=== PATIENT | female | born 1960 | race Caucasian/White ===

== ENCOUNTER → 2017-10-12 14:30 | Outpatient (CLI) | payer OTHER, SELFPAY ==
[2017-10-12 14:59] LABS: Add Manual Diff / Slide Review NO; Basophils Percent Auto 0.5 % (0-2); Eosinophils Percent Auto 1.8 % (2-4); Hematocrit 39.2 % (36-46); Hemoglobin 13.6 g/dL (12.0-16.0); Lymphocytes Percent Auto 36.8 % (25-40); Mean Corpuscular HGB Conc 34.7 % (30-36); Mean Corpuscular Hemoglobin 32.9 PG (26-34); Mean Corpuscular Volume 94.7 fL (80-100); Monocytes Percent Auto 9.1 % (3-14); Neutrophils Absolute Auto 3100 /uL (3000-5900); Neutrophils Percent Auto 51.8 % (50-75); Platelet Count 213 X10^3/uL (150-400); Red Blood Cell Count 4.14 X10^6/uL (4.0-5.2); Red Cell Distribution Width 11.7 % (11.6-14.8); White Blood Cell Count 6.1 X10^3/uL (4.5-11.0)
[2017-10-12 15:28] LABS: Alanine Aminotransferase 30 IU/L (9-52); Albumin 4.5 g/dL (3.5-5.0); Albumin Globulin Ratio 1.6 (1.0-2.8); Alkaline Phosphatase 47 U/L (38-126); Aspartate Aminotransferase 31 IU/L (14-36); BUN Creatinine Ratio 31.7 (6-22); Bilirubin Total 0.8 mg/dL (0.2-1.3); Blood Urea Nitrogen 19 mg/dL (7-17); Calcium 9.6 mg/dL (8.4-10.2); Carbon Dioxide 35 mmol/L (22-32); Chloride 94 mmol/L (98-107); Cholesterol 174 mg/dL (140-199); Estimated Glomerular Filt Rate > 60.0 mL/min (>60); Globulin 2.8 g/dL (1.7-4.1); Glucose 81 mg/dL (70-100); HDL Cholesterol 76 mg/dL (40-60); HEMOLYSIS < 15 (0-50); LDL Cholesterol Calculated 83 mg/dL (<100); Sodium 139 mmol/L (137-145); Total Protein 7.3 g/dL (6.3-8.2); Triglycerides 75 mg/dL (35-150)
[2017-10-12 15:38] LABS: Potassium 2.6 mmol/L (3.4-5.1)
[2017-10-12 16:45] LABS: Thyroid Stimulating Hormone 0.04 uIU/mL (0.47-4.68)
== END ==
PROVIDERS: Family Provider Internal Medicine; PCP Internal Medicine; Visit Provider Internal Medicine
DX: I10 Essential (primary) hypertension (principal); N95.1 Menopausal and female climacteric states; R79.89 Other specified abnormal findings of blood chemistry
CPT/HCPCS: 36415; 80053; 80061; 84443; 85025; 86376

== ENCOUNTER → 2017-10-16 09:54 | Outpatient (CLI) | payer OTHER, SELFPAY ==
[2017-10-16 11:02] LABS: Alanine Aminotransferase 29 IU/L (9-52); Albumin 4.6 g/dL (3.5-5.0); Albumin Globulin Ratio 1.6 (1.0-2.8); Alkaline Phosphatase 47 U/L (38-126); Aspartate Aminotransferase 31 IU/L (14-36); BUN Creatinine Ratio 23.3 (6-22); Bilirubin Total 0.6 mg/dL (0.2-1.3); Blood Urea Nitrogen 14 mg/dL (7-17); Calcium 9.5 mg/dL (8.4-10.2); Carbon Dioxide 31 mmol/L (22-32); Chloride 101 mmol/L (98-107); Estimated Glomerular Filt Rate > 60.0 mL/min (>60); Globulin 2.9 g/dL (1.7-4.1); Glucose 89 mg/dL (70-100); HEMOLYSIS < 15 (0-50); Sodium 141 mmol/L (137-145); Total Protein 7.5 g/dL (6.3-8.2)
[2017-10-16 11:15] LABS: Free T3, Triiodothyronine Free 3.45 pg/mL (2.77-5.27); Free T4, Direct Thyroxine 0.91 ng/dL (0.78-2.19)
[2017-10-16 11:29] LABS: Thyroid Stimulating Hormone 0.98 uIU/mL (0.47-4.68)
== END ==
PROVIDERS: Family Provider Internal Medicine; PCP Internal Medicine; Visit Provider Internal Medicine
DX: I10 Essential (primary) hypertension (principal); R61 Generalized hyperhidrosis; R79.89 Other specified abnormal findings of blood chemistry
CPT/HCPCS: 36415; 80053; 80061; 84439; 84443; 84481; 85025; 86800

== ENCOUNTER 2018-10-16 18:17 | Emergency (ER) | payer BC, SELFPAY ==
--- NOTE | 2018-10-16 18:35 | ED.WOUNDLAC ---
HPI - Wound/Laceration General Chief Complaint: Wound/Laceration Stated Complaint: laceration to left wrist Time Seen by Provider: 10/16/18 18:33 Source: patient Mode of arrival: ambulatory Limitations: no limitations History of Present Illness HPI narrative: 58-year-old female here for evaluation of a laceration to her left forearm. Patient states that just prior to arrival she was opening oysters when the knife slipped and cut her arm. She had immediate bleeding. She did wash it out prior to arrival. She was up-to-date on tetanus. Related Data Previous Rx's Medication Instructions Recorded chlorthalidone 25 mg tablet 25 mg PO DAILY #30 tab 09/22/17 potassium chloride ER 20 mEq 20 meq PO BID #14 tab 10/12/17 tablet,extended release hydrochlorothiazide 12.5 mg tablet 12.5 mg PO DAILY #30 tab 11/09/17 cephalexin [Keflex] 500 mg PO QID 7 Days #28 cap 10/16/18 Allergies Allergy/AdvReac Type Severity Reaction Status Date / Time carbamazepine [From Tegretol] AdvReac Verified 10/16/18 18:39 Review of Systems Constitutional Denies fever(s) Cardiovascular Denies chest pain and Denies dyspnea Respiratory Denies dyspnea Musculoskeletal Denies tingling Comments: No left wrist or left elbow pain Integumentary/Breasts Comments: Cut to the left forearm Neurologic Denies tingling Hematologic/Lymphatic Denies easy bleeding and Denies easy bruising [facility] Medical History Hearing loss (Chronic) Ruptured tympanic membrane (Chronic) Tinnitus (Chronic) Vertigo (Chronic) Chicken pox (Resolved ~1965) Surgical History Anesthesia (Resolved) History of tympanostomy (Resolved) Family History (Updated 09/26/17 @ 22:18 by Janis Nichols) Mother Hypertension Stroke Sister Breast cancer Diabetes mellitus Heart disease Hyperlipidemia Hypertension Stroke Mental health problem Social History Smoking Status: Former smoker Family History (Updated 09/26/17 @ 22:18 by Janis Nichols) Mother Hypertension Stroke Sister Breast cancer Diabetes mellitus Heart disease Hyperlipidemia Hypertension Stroke Mental health problem Social History (Reviewed 08/25/19 @ 03:58 by DORIS Jenkins Smoking Status: Former smoker Exam Initial Vital Signs Initial Vital Signs: Vital Signs Temperature 98.3 F 10/16/18 18:39 Pulse Rate 93 H 10/16/18 18:39 Respiratory Rate 20 10/16/18 18:39 Blood Pressure 181/119 H 10/16/18 18:39 Pulse Oximetry 98 10/16/18 18:39 Const General: cooperative Resp Effort & Inspection: normal respiratory effort Cardio Rate: regular rate Pulses: radial pulses present on the left Skin Other: A 3 cm laceration to the radial aspect of the distal 3rd of the left forearm. Neuro General: alert, awake and oriented x3 Cognition: normal cognition Speech: speech normal Extrem Other: Full range of motion left elbow left wrist. Patient able to flex and extend the wrist both active and passive hand against resistance. Able to flex and extend the thumb at the MCP and IP joint both active and passive and against resistance. Patient able to pronate and supinate. Psych Appearance: grossly normal and well kempt Procedures Laceration Repair Laceration 1: Site: upper extremity Side (If applicable): left Size (cm): 3 Description: linear Depth: simple, single layer Local Anesthetic: lidocaine 1% Amount of anesthesia used (mL): 4 Pre-repair: wound explored, irrigated extensively and deep structures intact Skin layer closed with: nylon Size (cm): 4-0 Number of sutures: 5 Technique: simple, interrupted Course Orders Ordered: Discontinued Medications Lidocaine HCl (Xylocaine 1% (Pf)) 4 ml INJ NOW ONE Stop: 10/16/18 18:36 Last Admin: 10/16/18 18:53 Dose: 4 ml Lidocaine HCl (Xylocaine 1% (Pf)) 4 ml SUBCUT NOW ONE Stop: 10/16/18 19:14 Last Admin: 10/16/18 19:17 Dose: 4 ml Vital Signs - 8 hr 10/16/18 20:20 Pulse Rate 75 Respiratory Rate 17 Blood Pressure [Right Arm] 136/94 H Pulse Oximetry 100 MDM - Wound/Laceration MDM Narrative Medical decision making narrative: Patient had full range of motion of the joints and able to pronate and supinate. I have low suspicion for fracture and low suspicion for foreign body so we will hold on x-ray. She is up-to-date on her tetanus. The wound was irrigated prior to arrival. Due to the physical exam I feel that tendon injury is unlikely. Patient did have a strong radial pulse. Did have some bleeding on the very proximal aspect of the wound that did have the appearance of an arterial bleed. I do not think that this was the radial artery. Gelfoam was used with pressure to stop bleeding. The wound was then closed as described above. There was a small hematoma subcutaneous just proximal to the wound. After the wound was closed she was observed here in the emergency department for short period of time with pressure over the area and there was no expanding hematoma. She was then observed for short period of time without any pressure and again there was no expanding hematoma and no bleeding from the wound. The wound was dressed. Given the extent of exploration will send her home with antibiotics. She was given return precautions care instructions. She expressed understanding and agreement with plan. Discharge Plan Departure Patient Disposition: Home Clinical Impression: Laceration Discharge Date/Time: 10/16/18 20:35 Interventions: ED Discharge Assessment Last Done: 10/16/18 20:34 Instructions: DI for Laceration Repair Activity Restrictions/Additional Instructions: I recommend that you keep the bandage on at least until tomorrow morning. After that you can take it off. You can wash your hand like normal. Expect some oozing however if it is starting to bleed please return to the emergency department. Take the antibiotics as directed. The stitches do need to be removed in 7-10 days. Return to the emergency department for any new or worsening symptoms Prescriptions: New cephalexin [Keflex] 500 mg capsule 500 mg PO QID 7 Days Qty: 28 RF: 0 No Action hydrochlorothiazide 12.5 mg tablet 12.5 mg PO DAILY Qty: 30 RF: 0 potassium chloride 20 mEq tablet extended release 20 meq PO BID Qty: 14 RF: 0 chlorthalidone 25 mg tablet 25 mg PO DAILY Qty: 30 RF: 1 Referrals: Thais Rodney ARNP [Primary Care Provider] -
[2018-10-16 18:39] VITALS: BP 181/119; PULSE 93; RESP 20; TEMP 36.8; O2SAT 98; BMI 20.2
[2018-10-16] MEDS: LIDOCAINE 1% (PF) 4 ML INJ (18:53)
[2018-10-16] MEDS: LIDOCAINE 1% (PF) 4 ML SUBCUT (19:17)
[2018-10-16 20:20] VITALS: BP 136/94; PULSE 75; RESP 17; O2SAT 100
== END 2018-10-16 20:35 | disposition home or self-care (01) ==
PROVIDERS: Emergency Provider Emergency Medicine; PCP Internal Medicine
DX: S51.812A Laceration without foreign body of left forearm, initial encounter (principal)
CPT/HCPCS: 12002; 99282; 99283

== ENCOUNTER → 2018-12-23 09:06 | Outpatient (CLI) | payer BC, SELFPAY ==
--- NOTE | 2018-12-23 | DI.MG.S_ITS ---
BILATERAL DIGITAL SCREENING MAMMOGRAM 3D/2D WITH CAD: 12/23/2018 CLINICAL: Routine screening. Comparison is made to exams dated: 08/15/2014 mammogram - [facility], 02/02/2012 mammogram, and 11/04/2010 mammogram - [facility]. The tissue of both breasts is heterogeneously dense. This may lower the sensitivity of mammography. Current study was also evaluated with a Computer Aided Detection (CAD) system. No significant masses, calcifications, or other findings are seen in either breast. There has been no significant interval change. IMPRESSION: NEGATIVE There is no mammographic evidence of malignancy. A 1 year screening mammogram is recommended. This exam was interpreted at Station ID: [id number]. NOTE: For mammograms, a report in lay terms will be sent to the patient. Approximately 15% of breast malignancies will not be visualized mammographically. In the management of a palpable breast mass, a negative mammogram must not discourage biopsy of a clinically suspicious lesion. Electronically Signed By: Harshil hadley/taina:12/23/2018 18:53:37 letter sent: Normal Exam ACR BI-RADS Category 1: Negative 3341F
== END ==
PROVIDERS: PCP Internal Medicine; Visit Provider Internal Medicine
DX: Z12.31 Encounter for screening mammogram for malignant neoplasm of breast (principal)
CPT/HCPCS: 77063; 77067

== ENCOUNTER 2019-02-10 06:38 | Day surgery (SDC) | payer BC, SELFPAY ==
[2019-02-10] MEDS: PROPARACAINE 0.5% OPHTH SOL 2 DROPS EYE-OP (07:09)
[2019-02-10 07:12] VITALS: BP 154/94; PULSE 89; RESP 18; TEMP 36.4; O2SAT 100
[2019-02-10 07:14] VITALS: BMI 21.4
[2019-02-10] MEDS: CATARACT EYE COMPOUND (10 DROPS/SYRINGE) 3 DROPS EYE-OP (07:14)
--- NOTE | 2019-02-10 07:28 | PM.PREOP ---
Pre-operative Note Interval Note History & Physical reviewed/Exam performed by Physician: Yes Changes to H&P: No
[2019-02-10] MEDS: BALANCED SALT IRRIG SOLN NO.2 15 ML 5 ML IRR (08:04)
[2019-02-10] MEDS: CHONDROIDTIN/SOD HYALURONATE 1.05 ML SYRINGE INTRAOCULA (08:05)
[2019-02-10] MEDS: LIDOCAINE 2% INJ SDV 2 ML INJ (08:05)
[2019-02-10] MEDS: MOXIFLOXACIN INJ 5 MG/ML VIAL EYE-OP (08:06)
[2019-02-10] MEDS: TETRACAINE 0.5% OPHTH DROPS 4 ML 2 DROPS EYE-OP (08:07)
[2019-02-10] MEDS: PHENYLEPHRINE/LIDOCAINE VIAL (OR) 0.2 ML EYE-OP (08:07)
[2019-02-10] MEDS: BALANCED SALT IRRIG SOLN NO.2 500 ML, EPINEPHrine 1 MG IRR (08:08)
--- NOTE | 2019-02-10 08:25 | P.OP_ITS ---
Procedure & Clinicians Procedure: Cataract extraction with intraocular lens implant, right. Same procedure as scheduled: Yes Indications: Traumatic cataract, right Surgeon: Tito Jarvis Click Yes if Unassisted: Yes Anesthesia Type: MAC +/- Operative Notes Procedure in detail: The patient was brought to the operating suite. The correct patient, surgical site and lens were confirmed. 0.5 % tetracaine drops were placed in the right eye. The patient was prepped and draped in the typical sterile manner. A lid speculum was placed in the eye. 2% lidocaine was placed on the eye. A paracentesis port was created with a side-port blade. 0.1 mL of 1% preservative free lidocaine with phenylephrine was injected into the anterior chamber. Viscoelastic was injected into the anterior chamber. A 2.6mm keratome was used to create a clear corneal temporal incision. Cystotome and Utrata forceps were used to create a continuous curvilinear capsulorrhexis. Balanced salt solution was used to hydrodissect the nucleus. Phacoemulsification was used to remove the lens. The capsular bag was inflated with viscoelastic. A Ozuna ZC ABREU +19.5D lens was inserted into the capsule. Viscoelastic was removed and the wound hydrated. The wound was found to be leak free and the eye was assessed to be at normal physiologic pressure. 0.1mL Vigamox was injected into the anterior chamber. The lid speculum was removed and the patient left the operating room in excellent condition. Complications: none Post-operative Condition: stable Disposition: same day surgery
[2019-02-10 08:29] VITALS: BP 153/94; PULSE 80; RESP 15; TEMP 36.7; O2SAT 99
== END 2019-02-10 08:40 | disposition home or self-care (01) ==
PROVIDERS: PCP Internal Medicine; Visit Provider Ophthalmology
PROC: (CPT 66984; principal; 2019-02-10 07:45)
DX: H26.101 Unspecified traumatic cataract, right eye (principal); Z87.820 Personal history of traumatic brain injury
CPT/HCPCS: 66984; J0171; J2250

== ENCOUNTER → 2019-12-13 13:05 | Outpatient (CLI) | payer BC, SELFPAY ==
[2019-12-14 14:43] LABS: COVID19 Sendout Not Detected (Not Detect)
== END ==
PROVIDERS: PCP Internal Medicine; Visit Provider Nurse Practitioner
DX: Z11.59 Encounter for screening for other viral diseases (principal)
CPT/HCPCS: 87635

== ENCOUNTER 2019-12-16 11:54 | Day surgery (SDC) | payer OTHER, SELFPAY ==
--- NOTE | 2019-12-16 11:54 | PM.HP.1 ---
History of Present Illness History of Present Illness Date Patient Seen: 12/16/19 Chief complaint: SCREENING COLONOSCOPY Narrative: 59 Years Old Female seen today for consideration of a screening colonoscopy. She has never had colonoscopy. There have been no lower GI symptoms suggesting disease such as change in bowel habits, bleeding, abdominal pain or anemia. Family history unknown, adopted. Overall health issues have been stable, including no major cardiac events for at least 6 weeks. Current Medications 1) Clobetasol Propionate 0.05 % External Ointment (Clobetasol Propionate) .... Applu to labia sparingly once a day for 7-10 days for irritation 2) Estriol 1mg Vaginal Perle .... Insert 1 perle nightly for two weeks and then insert 1 perle two to three times per week after. 3) Hydrochlorothiazide 12.5 Mg Oral Tablet (Hydrochlorothiazide) .... 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 Household Members: spouse Education: Patient History Medical History (Updated 10/31/18 @ 00:00 by ) Chicken pox (Resolved ~1965) Hearing loss (Chronic) Ruptured tympanic membrane (Chronic) Tinnitus (Chronic) Vertigo (Chronic) Surgical History Anesthesia (Resolved) History of tympanostomy (Resolved) Family & Social History Family History (Updated 09/26/17 @ 22:18 by Janis Nichols) Mother Hypertension Stroke Sister Breast cancer Diabetes mellitus Heart disease Hyperlipidemia Hypertension Stroke Mental health problem Social History: household members spouse Tobacco & Substance use: Smoking Status Former smoker alcohol intake frequency 0-2 drinks per day Substance Use Type does not use Meds Home Medications and Allergies Home Medications Medication Instructions Recorded Confirmed Type hydrochlorothiazide 10 mg PO DAILY 02/10/19 02/10/19 History trazodone 50 mg PO PRN PRN 02/10/19 02/10/19 History Allergies Allergy/AdvReac Type Severity Reaction Status Date / Time No Known Drug Allergies Allergy Verified 12/16/19 12:04 Review of Systems Review of Systems ROS: Yes All systems reviewed with the patient and are negative except as otherwise documented Exam Narrative Exam Narrative: General: well developed, well nourished, in no acute distress, Head: normocephalic and atraumatic, Lungs: normal respiratory effort, clear bilaterally to auscultation, no wheezes rales or rhonchi. Heart: normal rate and regular rhythm, no murmurs, rubs, gallops, or clicks, Abdomen: abdomen soft and non-tender without masses, organomegaly, or abdominal wall hernias, bowel sounds positive. Skin: intact without suspicious lesions or rashes, Psych: alert and cooperative; normal mood and affect; normal attention span and concentration; cognition, remote and recent memory appear to be intact, Assessment & Plan Assessment & Plan narrative: 1. Screening for colon cancer Plan for colonoscopy. The nature and character of the procedure as well as anticipated results were discussed. The possibility of not completing the procedure was also discussed. Possible complications including aspiration pneumonia, bleeding, perforation and reaction to medications either for sedation or preparation and missed lesions were discussed. Questions were answered and proceeding to the colonoscopy was elected. Informed consent signed. I sincerely appreciate the referral allowing me to participate in this patient's care. Please contact me with any questions or concerns.
--- NOTE | 2019-12-16 11:58 | PM.OP.ENDO ---
Operative Date/Time/Diagnoses Date of procedure: 12/16/19 Procedure Notes SCOAP/Timeout: 1:11 p.m. Procedure in detail: ENDOSCOPIST: Gwen Loyola MD Sedation RN: Lucina Mast RN Sedation start time: 1:18 p.m. Sedation end time: 1:32 p.m. PROCEDURE: Colonoscopy INDICATIONS: 1. Screening for colon cancer MEDICATION: Levsin 0.125 mg sublingual, incremental doses of Versed and fentanyl until appropriate level sedation achieved. ASA CLASS: 2 CECAL WITHDRAWAL TIME: 8 minutes COMPLICATIONS: None. EXTENT OF PROCEDURE: Cecum. QUALITY OF PREP: Good with portions of liquid stool. PROCEDURE: Prior to insertion of the colonoscope, a digital rectal examination was accomplished with circumferential palpation of the distal rectal mucosa without significant findings being noted. The high-definition colonoscope was passed into the rectum in the usual fashion and advanced over to the cecum without difficulty. The ileocecal valve, appendiceal stoma, and medial wall all could be inspected and no abnormalities were seen. ASCENDING COLON: As the colonoscope was withdrawn, care was taken to expose and inspect the haustral folds and no abnormalities were seen. HEPATIC FLEXURE: Normal, no polyps, diverticula or other abnormalities. TRANSVERSE COLON: Normal, no polyps, diverticula or other abnormalities. DESCENDING COLON: Normal, no polyps, diverticula or other abnormalities. SIGMOID COLON: One isolated diverticuli, otherwise, normal, no polyps, or other abnormalities. RECTUM: Normal. J maneuver was produced. There was no significant perianal disease. The J maneuver was broken. The remainder of the rectum was inspected and there was [] no external hemorrhoid disease. The scope was withdrawn. IMPRESSION: 1. Normal colonoscopy 2. Diverticulosis, sigmoid PLAN: 1. Repeat colonoscopy in 10 years. The possibility of a missed lesion including a malignancy has been discussed with the patient previously. Potential alarm symptoms have been discussed and should be reported immediately. Post-procedure Recommendations: Colonscopy in 10 years Disposition: PACU
[2019-12-16] MEDS: LACTATED RINGERS 1,000 ML 200 ML IV (12:20)
[2019-12-16] MEDS: HYOSCYAMINE 0.125 MG TABLET PO (12:20)
[2019-12-16 12:21] VITALS: BP 129/85; PULSE 85; RESP 18; TEMP 36.2; O2SAT 98; BMI 21.1
[2019-12-16 13:38] VITALS: BP 131/85; PULSE 86; RESP 21; TEMP 35.7; O2SAT 97
[2019-12-16] MEDS: fentaNYL 250 MCG/5 ML INJ IV (13:39)
[2019-12-16] MEDS: MIDAZOLAM 5 MG/5 ML VIAL IV (13:39)
[2019-12-16 13:42] VITALS: BP 138/90; PULSE 78; RESP 11; TEMP 36.3; O2SAT 97
[2019-12-16 13:48] VITALS: BP 135/89; PULSE 73; RESP 12; TEMP 36.1; O2SAT 98
[2019-12-16 13:53] VITALS: BP 118/79; PULSE 69; RESP 14; TEMP 36.1; O2SAT 96
[2019-12-16] MEDS: ONDANSETRON 4 MG/2 ML INJ IV ×2 (13:59→14:52)
--- NOTE | 2019-12-16 14:28 | SUR.PHASEII ---
Patient states that her nausea is better but that she wants to sleep a while longer. No other needs voice at this time. Will reassess.
[2019-12-16] MEDS: SCOPOLAMINE 1 PATCH TOP (14:55)
[2019-12-16 14:56] VITALS: BP 120/80; PULSE 77; RESP 12; TEMP 36.2; O2SAT 99
== END 2019-12-16 15:35 | disposition home or self-care (01) ==
PROVIDERS: PCP Internal Medicine; Referring Provider Internal Medicine; Visit Provider Student in an Organized Health Care Education/Training Program
PROC: 0DJD8ZZ Inspection of Lower Intestinal Tract, Via Natural or Artificial Opening Endoscopic (ICD-10-PCS; CPT 45378; principal; 2019-12-16 13:00)
DX: K57.30 Diverticulosis of large intestine without perforation or abscess without bleeding (principal); Z12.11 Encounter for screening for malignant neoplasm of colon; I10 Essential (primary) hypertension
CPT/HCPCS: 45378; J2250; J2405; J3010

== ENCOUNTER → 2020-12-11 09:24 | Outpatient (CLI) | payer OTHER, SELFPAY ==
--- NOTE | 2020-12-11 09:26 | DI.MG.S_ITS ---
BILATERAL DIGITAL SCREENING MAMMOGRAM 3D/2D WITH CAD: 12/11/2020 CLINICAL: Routine screening. Comparison is made to exams dated: 12/23/2018 mammogram - [facility], 08/15/2014 mammogram - [facility], and [facility] - [facility]. The tissue of both breasts is heterogeneously dense. This may lower the sensitivity of mammography. Current study was also evaluated with a Computer Aided Detection (CAD) system. No significant masses, calcifications, or other findings are seen in either breast. There has been no significant interval change. IMPRESSION: NEGATIVE There is no mammographic evidence of malignancy. A 1 year screening mammogram is recommended. This exam was interpreted at Station ID: [id number]. NOTE: For mammograms, a report in lay terms will be sent to the patient. Approximately 15% of breast malignancies will not be visualized mammographically. In the management of a palpable breast mass, a negative mammogram must not discourage biopsy of a clinically suspicious lesion. Electronically Signed By: Yobany Vazquez M.D., jr/tania:12/11/2020 10:37:42 letter sent: Normal Exam ACR BI-RADS Category 1: Negative 3341F
== END ==
PROVIDERS: PCP Internal Medicine; Referring Provider Internal Medicine; Visit Provider Family Medicine
DX: Z12.31 Encounter for screening mammogram for malignant neoplasm of breast (principal)
CPT/HCPCS: 77063; 77067

== ENCOUNTER → 2021-07-17 10:30 | Outpatient (CLI) | payer OTHER, SELFPAY ==
--- NOTE | 2021-07-17 | DI.RAD.S_ITS ---
PROCEDURE: XR CHEST 1V INDICATIONS: PORT A CATH TECHNIQUE: One view of the chest was acquired. COMPARISON: [facility], RG, CT THORAX WITH CONTRAST, 04/29/2021, 9:50. FINDINGS: Surgical changes and devices: Right-sided port with the catheter tip at the middle 3rd of the SVC. Lungs and pleura: Lungs are clear. No pleural effusions or pneumothorax. Mediastinum: Mediastinal contours appear normal. Heart size is normal. Bones and chest wall: No suspicious bony lesions. Overlying soft tissues appear unremarkable. IMPRESSION: Right-sided port with the catheter tip projecting at the middle 3rd of the SVC. Dictated by: Jean Carlos Esquivel M.D. on 07/17/2021 at 16:47 Approved by: Jean Carlos Esqiuvel M.D. on 07/17/2021 at 16:53
[2021-07-17 11:04] LABS: COVID19 -Nasal RAPID Negative (Negative)
== END ==
PROVIDERS: PCP Internal Medicine; Visit Provider Surgery
DX: Z01.812 Encounter for preprocedural laboratory examination (principal); Z20.822 Contact with and (suspected) exposure to COVID-19
CPT/HCPCS: 71045; 87635

== ENCOUNTER 2021-07-17 11:16 | Day surgery (SDC) | payer OTHER, SELFPAY ==
[2021-07-15 08:18] VITALS: BMI 21.2
[2021-07-17 11:55] VITALS: BP 126/87; PULSE 72; RESP 16; TEMP 36.4; O2SAT 100; BMI 21.6
[2021-07-17] MEDS: LACTATED RINGERS 1,000 ML 100 ML IV ×2 (12:16→12:17)
--- NOTE | 2021-07-17 14:21 | PM.HP.1 ---
History of Present Illness History of Present Illness Date Patient Seen: 07/17/21 Time Patient Seen: 14:21 Chief complaint: [facility] Narrative: 60 y.o woman with a diagnosis of left renal cell carcinoma who is here for a port a cath placement. No previous indwelling venous catheters. She is feeling well today. Patient History Medical History Anxiety Cancer of kidney Chicken pox (~1965) Constipation Depression Diverticulosis Hearing loss HTN (hypertension) Lung cancer PTSD (post-traumatic stress disorder) Ruptured tympanic membrane Tinnitus Vertigo Surgical History Anesthesia H/O tubal ligation History of nephrectomy, left History of right cataract extraction (02/10/19) History of tympanostomy Family & Social History Family History Mother Hypertension Stroke Sister Breast cancer Diabetes mellitus Heart disease Hyperlipidemia Hypertension Stroke Mental health problem Social History: household members spouse Tobacco & Substance use: Tobacco type cigarettes Smoking Status Former smoker alcohol intake current alcohol intake frequency 0-2 drinks per day Substance Use Type does not use Meds Home Medications and Allergies Home Medications Medication Instructions Recorded Confirmed Type hydrochlorothiazide 12.5 mg tablet 12.5 mg PO DAILY 02/10/19 07/17/21 History estradiol (Estrace) 1 g VAGINAL 2XW 05/06/21 07/17/21 History estradiol-norethindrone acet 1 1 tab PO DAILY 05/30/21 07/17/21 History mg-0.5 mg tablet (Activella) hydrocodone 5 mg-acetaminophen 325 1 tab PO Q4-6H PRN 05/30/21 07/15/21 History mg tablet losartan 25 mg tablet 25 mg PO DAILY 05/30/21 07/17/21 History propranolol 20 mg tablet 20 mg PO BID 05/30/21 07/17/21 History zolpidem 10 mg tablet (Ambien) 5 mg PO BEDTIME PRN 05/30/21 07/17/21 History alprazolam 0.5 mg tablet (Xanax) 0.25 mg PO BEDTIME PRN 06/27/21 07/17/21 History Allergies Allergy/AdvReac Type Severity Reaction Status Date / Time No Known Drug Allergies Allergy Verified 07/17/21 11:46 Exam Vital Signs (past 8 hours): - 07/17/21 11:55 Temperature 97.5 F L Pulse Rate 72 Respiratory Rate 16 Blood Pressure 126/87 Pulse Oximetry 100 Oxygen Delivery Method Room Air Narrative Exam Narrative: Gen-Adult woman alert and oriented no distress Chest-non labored resp Abdomen-Soft non tender Assessment & Plan Assessment and plan (1) Clear cell carcinoma of left kidney: Status: Acute Assessment & Plan narrative: 60 y.o woman with renal cell carcinoma here for port a cath placement. Technical details of the operation were discussed with the patient. Operative risks including bleeding, infection, mechanical device failure, pneumothorax were discussed. her questions have been answered and she is in agreement with this plan. Time Spent With Patient Critical Care time: I spent a total of [] minutes of critical care time on this patient's care today; this time is exclusive of procedural time.
--- NOTE | 2021-07-17 15:54 | SUR.OPER ---
Supine on padded OR bed, head on pillow, arms padded with gel pads and tucked at sides, legs uncrossed, safety belt at thigh, tape over blanket over lower legs .
[2021-07-17] MEDS: BUPIVACAINE 0.25% (PF) VIAL 30 ML INJ (16:03)
[2021-07-17] MEDS: HEPARIN 5,000 UNIT, SODIUM CHLORIDE 0.9% 50 ML IV (16:04)
[2021-07-17] MEDS: CEFAZOLIN 2 GM/20 ML SYRINGE IV (16:10)
[2021-07-17 16:17] VITALS: BP 117/72; PULSE 83; RESP 14; TEMP 36.2; O2SAT 97
[2021-07-17 16:21] VITALS: BP 121/75; PULSE 89; RESP 14; O2SAT 97
--- NOTE | 2021-07-17 16:21 | P.OP_ITS ---
Operative Date/Time/Diagnoses Date of procedure: 07/17/21 Time of procedure: 16:21 Pre-op diagnosis: Venous insufficiency Renal cell carcinoma Post-op diagnosis: same Procedure & Clinicians Procedure: Port-A-Cath placement Same procedure as scheduled: Yes Indications: Venous insufficiency Renal cell carcinoma Surgeon: Lawrence Vernon Click Yes if Unassisted: Yes Anesthesia Type: General Operative Notes Findings: Tip catheter within the SVC on fluoroscopy Specimen(s): none sent Estimated Blood Loss (mL): 10 Procedure in detail: Patient was brought to the operating room placed supine on table. Bilateral lower extremity compressive devices were applied. General anesthesia was induced and he was intubated with an LMA. She was then prepped and draped in usual sterile fashion. Time-out was performed ensure the correct patient procedure necessary equipment within the operating room. She received 2 g of Ancef prior to incision. Under ultrasound guidance the right internal jugular vein was accessed under direct visualization. The guidewire was then threaded through the needle. Its placement was then confirmed using fluoroscopy. The dilator was then placed over the guidewire. The catheter was then inserted through the sheath. Placement was again confirmed with fluoroscopy. A sub cutaneous pocket was made in the right chest wall. The tunneler device was used to move the catheter from the neck to the chest pocket. The port was attached after it was primed with heparined saline. The port was tested to ensure that it flushed easily and had good blood return. The port was then secured to the underlying fascia using interupted 0 Prolene suture. Hemostasis was achieved. The wound was irrigated with sterile saline. The subcutaneous tissues were reapproximated with the 3 0 Vicryl and then skin closed with 4-0 Monocryl. The skin was sealed with Dermabond. Patient tolerated procedure well. The sponge and instrument count at the end operation was correct. Patient emerged from general anesthesia was extubated and taken to the postoperative care unit in stable condition Complications: none Post-operative Condition: stable Disposition: same day surgery
[2021-07-17 16:26] VITALS: BP 124/80; PULSE 69; RESP 12; O2SAT 99
[2021-07-17 16:31] VITALS: BP 127/80; PULSE 71; RESP 15; O2SAT 98
[2021-07-17] MEDS: OXYCODONE IR 5 MG TABLET PO (16:34)
[2021-07-17 16:40] VITALS: BP 124/76; PULSE 69; RESP 15; TEMP 36.2; O2SAT 100
--- NOTE | 2021-07-17 16:52 | SUR.PHASEII ---
Discharge instructions reviewed with pt and she verbalized understanding.
== END 2021-07-17 17:11 | disposition home or self-care (01) ==
PROVIDERS: PCP Internal Medicine; Referring Provider Surgery; Visit Provider Surgery
PROC: (CPT 36561; principal; 2021-07-17 12:30)
DX: I87.2 Venous insufficiency (chronic) (peripheral) (principal); C64.9 Malignant neoplasm of unspecified kidney, except renal pelvis; I10 Essential (primary) hypertension; F41.9 Anxiety disorder, unspecified; F43.10 Post-traumatic stress disorder, unspecified; Z01.812 Encounter for preprocedural laboratory examination; Z20.822 Contact with and (suspected) exposure to COVID-19
CPT/HCPCS: 36561; 71045; 82962; 87635; C9803; J0690; J1100; J1644; J2250; J2405; J2704; J3010

== ENCOUNTER 2021-10-14 09:53 | Emergency (ER) | payer OTHER, SELFPAY ==
[2021-10-14 10:00] VITALS: BP 181/87; PULSE 75; RESP 18; TEMP 36.8; O2SAT 99; BMI 20.9
--- NOTE | 2021-10-14 10:36 | ED_ITS ---
HPI - Allergic Reaction General Chief complaint: Allergic Reaction Stated complaint: Body rash, zaps in head- pt at [facility] Time Seen by Provider: 10/14/21 09:58 Source: patient Mode of arrival: Ambulatory History of Present Illness HPI narrative: 61-year-old female former smoker with history of renal cell carcinoma status post treatment including radical nephrectomy currently under the care of Dr. House at the [facility] presents with a mildly pruritic rash which is widespread and has been present for at least the past few days and seemed to start after recent dose of Keytruda. She denies any trouble breathing or swallowing. She denies any pain or fever. She does state that she has a left- sided headache that has been present for at least the past day that feels like occasional lightning strikes, she states it is not persistent and seems to come and go without any obvious pattern. She denies any recent trauma or injury, has no neck pain. She denies other neurologic symptoms such as dizziness, weakness or lightheadedness. She has no blurred vision or trouble with speech. When the episodes of pain come they are very brief and fleeting. She denies any rash. She has no ear pain or drainage. Related Data Home Medications Medication Instructions Recorded Confirmed hydrochlorothiazide 12.5 mg tablet 12.5 mg PO DAILY 02/10/19 07/17/21 estradiol 0.01% (0.1 mg/gram) 1 g vaginal 2XW 05/06/21 07/17/21 vaginal cream (Estrace) estradiol-norethindrone acet 1 1 tab PO DAILY 05/30/21 07/17/21 mg-0.5 mg tablet (Activella) hydrocodone 5 mg-acetaminophen 325 1 tab PO Q4-6H PRN Pain (Scale 05/30/21 07/15/21 mg tablet Score 4-6) losartan 25 mg tablet 25 mg PO DAILY 05/30/21 07/17/21 propranolol 20 mg tablet 20 mg PO BID 05/30/21 07/17/21 zolpidem 10 mg tablet (Ambien) 5 mg PO BEDTIME PRN Insomnia 05/30/21 07/17/21 alprazolam 0.5 mg tablet (Xanax) 0.25 mg PO BEDTIME PRN Anxiety 06/27/21 07/17/21 Previous Rx's Medication Instructions Recorded acetaminophen 325 mg capsule 650 mg PO QID PRN pain #60 caps 07/17/21 (Tylenol) lidocaine-prilocaine 2.5 %-2.5 % See Rx Instructions .Route 08/19/21 topical cream .COMPLEX #30 grams ketorolac 10 mg tablet 10 mg PO Q6H PRN pain #14 tabs 10/14/21 Allergies Allergy/AdvReac Type Severity Reaction Status Date / Time No Known Drug Allergies Allergy Verified 07/17/21 11:46 Review of Systems Review of Systems Narrative: GENERAL: Denies chills, fatigue, malaise, fever, sweats. HEENT: Denies sinus pain, ear pain, sore throat, difficulty swallowing, dizziness. RESPIRATORY: Denies dyspnea, cough, wheezing, hemoptysis, sputum. CARDIOVASCULAR: Denies chest pain, palpitations, orthopnea, edema, GASTROINTESTINAL: Denies nausea, vomiting, abdominal pain, diarrhea, constipation, melena. : Denies dysuria, frequency, incontinence, hematuria, urinary retention. MUSCULOSKELETAL: denies weakness, joint pain, or bony pain SKIN: See HPI NEUROLOGIC: See HPI PSYCHIATRIC: No concerning psychosocial issues. 12 point review of systems is negative except for those stated above Patient History Medical History Anxiety Cancer of kidney Chicken pox (~1965) Constipation Depression Diverticulosis Hearing loss HTN (hypertension) Lung cancer PTSD (post-traumatic stress disorder) Ruptured tympanic membrane Tinnitus Vertigo Surgical History Anesthesia H/O tubal ligation History of nephrectomy, left History of right cataract extraction (02/10/19) History of tympanostomy Family History Mother Hypertension Stroke Sister Breast cancer Diabetes mellitus Heart disease Hyperlipidemia Hypertension Stroke Mental health problem Social History household members: spouse Smoking Status: Former smoker alcohol intake: current substance use type: does not use Smoking Status: Former smoker alcohol intake frequency: 0-2 drinks per day Substance Use Type: does not use Exam Narrative Exam Narrative: GENERAL: 61[] year old patient appears stated age. Well-developed patient, in mild distress. HEAD: Atraumatic. Normocephalic. EYES: Pupils equal round and reactive. Extraocular motions intact. No scleral icterus. No injection or drainage. ENT: No oral involvement, no mucosal edema or sloughing. Nose without bleeding, purulent drainage. Throat without erythema, tonsillar hypertrophy or exudate. Airway patent. NECK: Trachea midline. Non tender CARDIOVASCULAR: Regular rate and rhythm without murmurs, gallops, or rubs. RESPIRATORY: Clear to auscultation. Breath sounds equal bilaterally. No wheezes, rales, or rhonchi. GASTROINTESTINAL: Abdomen soft, non-tender, nondistended. EXTREMITIES: No edema or joint tenderness. BACK: Nontender without deformity or crepitance. No flank tenderness. NEURO: AOx3. SKIN: Widespread blanching pruritic rash without bulla, vesicles or Nikolsky sign Initial Vital Signs Initial Vital Signs: Vital Signs Temperature 98.3 F 10/14/21 10:00 Pulse Rate 75 10/14/21 10:00 Respiratory Rate 18 10/14/21 10:00 Blood Pressure 181/87 H 10/14/21 10:00 Pulse Oximetry 99 10/14/21 10:00 Oxygen Delivery Method 10/14/21 10:00 Course Orders Ordered: Discontinued Medications Gabapentin (Gabapentin 300 Mg Capsule) 300 mg PO NOW ONE Stop: 10/14/21 11:20 Last Admin: 10/14/21 11:59 Dose: 300 mg Documented By: DAMON Sodium Chloride (Normal Saline 0.9%) 1,000 mls @ 1,000 mls/hr IV BOLUS ONE Stop: 10/14/21 12:18 Last Infusion: 10/14/21 13:38 Dose: 0 mls/hr Documented By: Admin: 10/14/21 12:00 Dose: 1,000 mls/hr Documented By: DAMON Ketorolac Tromethamine (Ketorolac 30 Mg/Ml Vial) 15 mg IV NOW ONE Stop: 10/14/21 11:20 Last Admin: 10/14/21 11:50 Dose: 15 mg Documented By: DAMON Reevaluation(s) Reevaluation #1: Patient feeling significant improvement of her headache after above-stated therapies Consultations Consultation #1: Discussed rash with Oncology, Dr. Goode suggest this is a rather common affect of the Keytruda, he will follow Vital Signs Vital signs: Vital Signs - 8 hr 10/14/21 10:00 Temperature 98.3 F Pulse Rate 75 Respiratory Rate 18 Blood Pressure 181/87 H Pulse Oximetry 99 Oxygen Delivery Method Room Air MDM - Allergic Reaction Lab Data Result diagrams: 10/14/21 11:50 10/14/21 11:50 Labs: Lab Results 10/14/21 10/14/21 10/14/21 Range/Units 10:50 11:50 11:50 WBC 5.9 (4.5-11.0) X10^3/uL RBC 4.06 (4.0-5.2) X10^6/uL Hgb 13.2 (12.0-16.0) g/dL Hct 37.8 (36-46) % MCV 92.9 (80-100) fL MCH 32.4 (26-34) PG MCHC 34.9 (30-36) % RDW 12.0 (11.6-14.8) % Plt Count 45 L (150-400) X10^3/uL Neut % (Auto) 65.1 (50-75) % Lymph % (Auto) 26.9 (25-40) % [place] % (Auto) 4.7 (3-14) % Eos % (Auto) 2.3 (2-4) % Baso % (Auto) 1.0 (0-2) % Neut # (Auto) 3800 (3140-7887) /uL Lymph # (Auto) 1600 (8939-9093) /uL [place] # (Auto) 300 (0-900) /uL Eos # (Auto) 100 (0-450) /uL Baso # (Auto) 100 (0-100) /uL ESR 1 (0-20) MM/HR Sodium 138 (137-145) mmol/L Potassium 3.5 (3.4-5.1) mmol/L Chloride 105 (98-107) mmol/L Carbon Dioxide 23 (22-32) mmol/L BUN 17 (7-17) mg/dL Creatinine 0.95 (0.52-1.04) mg/dL Estimated GFR > 60 (>60) mL/min BUN/Creatinine Ratio 17.9 (6-22) Glucose 81 (80-110) mg/dL Calcium 8.7 (8.4-10.2) mg/dL Total Bilirubin 0.6 (0.2-1.3) mg/dL AST 24 (14-36) IU/L ALT 23 (<35) IU/L Alkaline Phosphatase 42 (38-126) U/L C-Reactive Protein 0.7 (<1.0) mg/dL Total Protein 7.1 (6.3-8.2) g/dL Albumin 4.1 (3.5-5.0) g/dL Globulin 3.0 (1.7-4.1) g/dL Albumin/Globulin Ratio 1.4 (1.0-2.8) Urine RBC 1-5/hpf (0-5/HPF) Urine WBC 0-1/hpf (0-5/HPF) Ur Squamous Epith Cells 1-5 /hpf (0-5/HPF) Urine Bacteria Few (2-10) H (None) Ur Culture Indicated? Cult not indicated Urine Dip Bedside Urine Glucose Negative Bedside Urine Bilirubin - Negative Bedside Urine Ketone - Negative Urine Specific [place] 1.015 Bedside Urine Occult Blood +/- Bedside Urine pH 6.5 Bedside Urine Protein - Negative Bedside Urine Urobilinogen - Negative Bedside Urine Nitrite - Negative Bedside Urine Leukocytes - Negative Esterase MDM Narrative Medical decision making narrative: Headache considerations include, but not limited to: Subarachnoid hemorrhage, but unlikely as patient denies sudden onset of pain, not worst of life, or neck pain Meningitis considered, but thought unlikely given lack of Brudzinski's, Kernig's sign, altered mental status or fever Giant cell arteritis considered, but thought unlikely given lack of unilateral findings, pain in faith, vision change HTN Emergency considered, but thought unlikely given normal vitals Other serious diagnoses considered unlikely given lack of red flag findings such as sudden onset, increasing frequency, immunocompromise, systemic signs (fever, chills, stiff neck, or rash), focal neurologic findings, trauma, blood thinners, etc. Rash most likely a consequence of Keytruda. She has no signs of anaphylaxis, no trouble breathing, face, tongue, lip or throat swelling, no trouble swallowing. Discharge Plan Departure Patient Disposition: Home Clinical Impression: Headache, Drug rash Instructions: DI for Headache Activity Restrictions/Additional Instructions: *You have been diagnosed with [ Headache ] *What to do: *Take medications as directed. As we discussed a prescription was sent to [facility] on your behalf *Follow up with your primary care provider in 2-3 days, call for an appointment. Let them know you were seen in the Emergency Department and that we ask that you be seen in follow up *Return to ER if you should have any new, worsening or concerning symptoms, such as [ fever > 101F, neck pain or stiffness, vomiting, confusion, seizure, focal weakness, vision change, speech deficit or other concerning symptoms ] Prescriptions: New ketorolac 10 mg tablet 10 mg PO Q6H PRN (Reason: pain) Qty: 14 0RF No Action hydrochlorothiazide 12.5 mg tablet 12.5 mg PO DAILY estradiol [Estrace] 0.01 % (0.1 mg/gram) Cream 1 g VAGINAL 2XW hydrocodone-acetaminophen 5-325 mg Tablet 1 tab PO Q4-6H PRN (Reason: Pain (Scale Score 4-6)) estradiol-norethindrone acet [Activella] 1-0.5 mg Tablet 1 tab PO DAILY losartan 25 mg Tablet 25 mg PO DAILY zolpidem [Ambien] 10 mg Tablet 5 mg PO BEDTIME PRN (Reason: Insomnia) propranolol 20 mg Tablet 20 mg PO BID alprazolam [Xanax] 0.5 mg Tablet 0.25 mg PO BEDTIME PRN (Reason: Anxiety) lidocaine-prilocaine 2.5-2.5 % Cream See Rx Instructions .ROUTE .COMPLEX Qty: 30 4RF Rx Instructions: Apply to the skin over the port at least 60-90 minutes before the planned use of the port. Cover the cream with a small piece of plastic wrap and leave in place until the port is accessed acetaminophen [Tylenol] 325 mg capsule 650 mg PO QID PRN (Reason: pain) Qty: 60 0RF Referrals: Thais Rodney ARNP [Primary Care Provider] - Jatinder Goode MD [Physician] - Visit Report Forms: Patient Portal/API
[2021-10-14 11:15] LABS: Bacteria Urine Few (2-10); Culture Indicated Urine Cult Not Indicated; RBC Urine 1-5/HPF (0-5/HPF); Squamous Epithelial Cell Urine 1-5 /HPF (0-5/HPF); WBC Urine 0-1/HPF (0-5/HPF)
--- NOTE | 2021-10-14 11:18 | DI.CT.S_ITS ---
PROCEDURE: CT HEAD/BRAIN WO CON INDICATIONS: headache TECHNIQUE: Noncontrast 4.5 mm thick angled axial sections acquired from the foramen magnum to the vertex, with coronal and sagittal reformats. For radiation dose reduction, the following was used: automated exposure control, adjustment of mA and/or kV according to patient size. COMPARISON: [facility], CT, HEAD WITHOUT CONTRAST, 01/23/2010, 8:18. FINDINGS: Image quality: Excellent. CSF spaces: Basal cisterns are patent. No extra-axial fluid collections. Ventricles are normal in size and shape. Brain: No midline shift. No intracranial masses or hemorrhage. Lincoln-white matter interface is normal. Skull and face: Calvarium and visualized facial bones are intact, without suspicious lesions. Prior left mastoidectomy. Sinuses: Visualized sinuses and mastoids are clear. IMPRESSION: No acute intracranial abnormality. Suspect prior left mastoidectomy. Dictated by: Jean Carlos Esquivel M.D. on 10/14/2021 at 12:00 Approved by: Jean Carlos Esquivel M.D. on 10/14/2021 at 12:03
[2021-10-14] MEDS: KETOROLAC 30 MG/ML VIAL 15 MG IV (11:50)
[2021-10-14] MEDS: GABAPENTIN 300 MG CAPSULE PO (11:59)
[2021-10-14] MEDS: SODIUM CHLORIDE 0.9% 1,000 ML 1000 ML IV (12:00)
[2021-10-14 12:05] LABS: Add Manual Diff / Slide Review NO; Basophils Absolute Auto 100 /uL (0-100); Eosinophils Absolute Auto 100 /uL (0-450); Eosinophils Percent Auto 2.3 % (2-4); Hematocrit 37.8 % (36-46); Hemoglobin 13.2 g/dL (12.0-16.0); Lymphocytes Absolute Auto 1600 /uL (1100-4500); Lymphocytes Percent Auto 26.9 % (25-40); Mean Corpuscular HGB Conc 34.9 % (30-36); Mean Corpuscular Hemoglobin 32.4 PG (26-34); Mean Corpuscular Volume 92.9 fL (80-100); Monocytes Absolute Auto 300 /uL (0-900); Monocytes Percent Auto 4.7 % (3-14); Neutrophils Absolute Auto 3800 /uL (1500-7000); Neutrophils Percent Auto 65.1 % (50-75); Platelet Count 45 X10^3/uL (150-400); Red Blood Cell Count 4.06 X10^6/uL (4.0-5.2); White Blood Cell Count 5.9 X10^3/uL (4.5-11.0)
[2021-10-14 12:19] LABS: Alanine Aminotransferase 23 IU/L (<35); Albumin 4.1 g/dL (3.5-5.0); Albumin Globulin Ratio 1.4 (1.0-2.8); Alkaline Phosphatase 42 U/L (38-126); Aspartate Aminotransferase 24 IU/L (14-36); BUN Creatinine Ratio 17.9 (6-22); Bilirubin Total 0.6 mg/dL (0.2-1.3); Blood Urea Nitrogen 17 mg/dL (7-17); Calcium 8.7 mg/dL (8.4-10.2); Carbon Dioxide 23 mmol/L (22-32); Chloride 105 mmol/L (98-107); Erythrocyte Sedimentation Rate 1 MM/HR (0-20); Estimated Glomerular Filt Rate > 60 mL/min (>60); Glucose 81 mg/dL (80-110); HEMOLYSIS < 15 (0-50); Potassium 3.5 mmol/L (3.4-5.1); Sodium 138 mmol/L (137-145); Total Protein 7.1 g/dL (6.3-8.2)
[2021-10-14 12:44] LABS: C-Reactive Protein Quant 0.7 mg/dL (<1.0)
[2021-10-14 13:31] VITALS: BP 145/80; PULSE 69; RESP 16; O2SAT 98
== END 2021-10-14 13:39 | disposition home or self-care (01) ==
PROVIDERS: Emergency Provider Emergency Medicine; PCP Internal Medicine
DX: R51.9 Headache, unspecified (principal); L27.0 Generalized skin eruption due to drugs and medicaments taken internally
CPT/HCPCS: 36415; 70450; 80053; 81003; 81015; 85025; 85651; 86140; 96361; 96374; 99284; J1885

== ENCOUNTER → 2021-11-22 10:30 | Outpatient (CLI) | payer OTHER, SELFPAY | PROVIDERS: PCP Internal Medicine; Visit Provider Nurse Practitioner Critical Care Medicine | DX: N39.0 Urinary tract infection, site not specified (principal) | CPT/HCPCS: 87077; 87086; 87186 ==

== ENCOUNTER → 2022-01-03 11:26 | Outpatient (CLI) | payer OTHER, SELFPAY ==
--- NOTE | 2022-01-03 11:30 | DI.MG.S_ITS ---
BILATERAL DIGITAL SCREENING MAMMOGRAM 3D/2D WITH CAD: 01/03/2022 CLINICAL: Routine screening. Comparison is made to exams dated: 12/11/2020 mammogram and 12/23/2018 mammogram - [facility]. Both breasts are heterogeneously dense, which may obscure small masses (category c / 51-75% glandular tissue). Current study was also evaluated with a Computer Aided Detection (CAD) system. No significant masses, calcifications, or other findings are seen in either breast. There has been no significant interval change. IMPRESSION: NEGATIVE There is no mammographic evidence of malignancy. A 1 year screening mammogram is recommended. Based on the Tyrer Cuzick model (a risk assessment model) the patient's lifetime risk is 9.4% and her 10 year risk is 3.8%. According to the ACR, ACS, and NCCN guidelines, an annual breast MRI exam along with mammogram is recommended if the patient's lifetime risk is 20% or greater. This exam was interpreted at Station ID: [id number]. NOTE: For mammograms, a report in lay terms will be sent to the patient. Approximately 15% of breast malignancies will not be visualized mammographically. In the management of a palpable breast mass, a negative mammogram must not discourage biopsy of a clinically suspicious lesion. Electronically Signed By: Axel reeves/taina:01/03/2022 17:27:48 letter sent: Normal Exam ACR BI-RADS Category 1: Negative 3341F
== END ==
PROVIDERS: PCP Internal Medicine; Referring Provider Family Medicine; Visit Provider Family Medicine
DX: Z12.31 Encounter for screening mammogram for malignant neoplasm of breast (principal)
CPT/HCPCS: 77063; 77067

== ENCOUNTER → 2022-01-08 10:29 | Outpatient (CLI) | payer OTHER, SELFPAY ==
--- NOTE | 2022-01-08 10:30 | DI.CT.S_ITS ---
PROCEDURE: CT CHEST ABD PEL WO CON INDICATIONS: lung nodule, kidney cancer TECHNIQUE: After the administration of oral contrast, 5 mm thick sections acquired from the lung apices to the symphysis pubis. 5 mm thick coronal and sagittal reformats acquired, with additional 7 mm coronal MIP reformats through the lungs. For radiation dose reduction, the following was used: automated exposure control, adjustment of mA and/or kV according to patient size. COMPARISON: [facility], , CT ABDOMEN/PELVIS W/WO CONTRAST, 04/23/2021, 11:53. [facility], , CT THORAX WITH CONTRAST, 04/29/2021, 9:50. FINDINGS: Image quality: Adequate CHEST: Lungs and pleura: Unchanged 5 mm solid right lower lobe nodule (3/210). A 3 mm nodule at the anterior right upper lobe (3/68) is also unchanged. No definite new suspicious or enlarging pulmonary nodule. Biapical pleural/parenchymal scarring redemonstrated. No pleural effusion. Mediastinum: No pericardial effusion. No definite mediastinal adenopathy by CT size criteria. Thoracic aorta and central pulmonary arteries are normal in size. Tip of the right chest port catheter terminates at the lower SVC. Chest wall: No axillary or supraclavicular adenopathy by size criteria. ABDOMEN: Solid organs: Liver is normal in size. Gallbladder is unremarkable . Pancreas is normal in contours. Spleen is normal in size. No adrenal nodules. Interval left nephrectomy. No suspicious findings identified in the surgical bed. No right hydronephrosis. Peritoneum and bowel: No bowel obstruction. No free air or free fluid. Nodes and vessels: No retroperitoneal or mesenteric adenopathy by size criteria. Aorta and inferior vena cava are normal in size. PELVIS: Genitourinary: Bladder wall thickness is normal. Miscellaneous: No adenopathy. Bones: No suspicious bony lesions. No vertebral body compression fractures. IMPRESSION: 1. Interval left nephrectomy. No suspicious findings visualized in the surgical bed. 2. Previously demonstrated small right lower lobe pulmonary nodule is unchanged and remains indeterminate. 3. Otherwise, no definite evidence of metastatic disease in the chest, abdomen, or pelvis identified on this noncontrast exam. Dictated by: Axel Mejia M.D. on 01/08/2022 at 20:11 Approved by: Axel Mejia M.D. on 01/08/2022 at 20:55
== END ==
PROVIDERS: PCP Internal Medicine; Referring Provider Internal Medicine Hematology & Oncology; Visit Provider Internal Medicine Hematology & Oncology
DX: C64.2 Malignant neoplasm of left kidney, except renal pelvis (principal); C34.90 Malignant neoplasm of unspecified part of unspecified bronchus or lung; R91.8 Other nonspecific abnormal finding of lung field; Z90.5 Acquired absence of kidney
CPT/HCPCS: 71250; 74176

== ENCOUNTER → 2022-01-20 11:29 | Outpatient (CLI) | payer OTHER, SELFPAY ==
[2022-01-20 12:19] VITALS: BMI 20.2
[2022-01-21 12:47] VITALS: BMI 20.3
--- NOTE | 2022-01-21 12:51 | DIET.CONS ---
Addendum entered by Joyce Jennings 01/22/22 08:39: Pt seen on 01/20/22, RD completed note the next day. Original Note: Dietary Consultation Note Assessment: 61y F [address] visit for help with symptom management and nutrition reccs as she progresses through oncology tx for clear cell carcinoma of kidney. Pt diagnosed with clear cell carcinoma of kidney 6mo ago and had nephrectomy and is undergoing q3w cycles of Keytruda for the next 6mo before reevaluation. Pt experiencing fear of eating, nausea, watery diarrhea mixed with constipation and fatigue. Pt estimates she is consuming 600-800kcals per day with current BMI of 20.4. She states she has noticed decreased muscle mass especially in her arms. At baseline pt reports being an active adult with high energy. She enjoys eating global foods, hiking and reports her kids have always had a difficult time keeping up with her. Pt has always had a low body weight despite eating large food portions and not restricting intake. 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 Currently, pt sleeping 12h/night with help of sleep aid and wakes feeling fatigued. Pt states she could stare at a wall for hours each day. Pt will muster energy to cook something but then not feel interested in eating it. Pt has Rx for Zofran but only using intermittently once she feels nauseated after eating something. Pt not pre-loading with anti-emetic or using appetite stimulants. Pt taking Miralax once weekly to manage stools and feels this helps, though is nervous to continue related to developing reliance. Pt able to eat sourdough toast with soft cooked egg daily and usually 2oz meat with 1/2 c veg for dinner. Pt states she forgets to drink and is afraid to drink too large a volume at once because it causes nausea. Pt reports one afternoon she consumed 2oz red wine and was able to eat larger meal than usual that day. Pt dislikes protein powders and oral nutrition supplement drinks. Pt not interested in eating chocolate pudding to increase kcals. Pt getting around 800 steps daily, went to [email or web address] last week and got 3k steps. RD Impression: Pt meeting ~50% nutritional needs at this time through food. Pt would benefit from better timing of and regular use of antiemetic with meals to reduce nausea after meals. Pt would benefit from appetite stimulant such as cannabis, Marinol, or the like. Because pt has hx of passion for food, especially global foods, intervention centers mainly around having global take out available to her as lunch time meal. Ht: 162 cm Wt: 53.5 kg BMI: 20.4 UBW: 55kg Nutrition Diagnosis: Moderate Malnutrition r/t poor oral intake aeb pt undergoing q3w Keytruda treatment for clear cell carcinoma of kidney, pt with BMI 20.4, pt consuming ~50% EER daily and is high risk of severe malnutrition with ongoing poorly managed oncology tx side effects. Interventions: 1. To support pts ability to consume adequate calories, [facility] pt pre-treat with anti-emetic 30min prior to meals to avoid postprandial nausea and fear around food causing nausea. Pt may need larger Rx for Zofran from Oncologist. 2. To support pts ability to consume PO intake, recc trial of appetite stimulant such as cannabis, Marinol or other. 3. To support increased intake kcals and protein, pts spouse will molded goods spot picker global take out (Maori, Sinhala, , Wolof) three times per week for pt to have half portion daily at lunch time. Pt very excited about this option. Pt educated on high impact choices such as those with high quality protein and cream/oil/butter added. 4. To increase intake kcals, encouraged pt to take at least 4 bites when she does not feel like eating. 5. To support bowel habits, [facility] pt continue to take Miralax so she has a BM daily even if this means increasing dose frequency as long as taken as directed on label. EER: 1200kcals, 60g PRO Monitoring/Evaluations: f/u PRN Electronically Signed by: Joyce Jennings 01/21/22 12:51 Clinical Dietitian [id number] [place] [address]
== END ==
PROVIDERS: PCP Internal Medicine; Referring Provider Internal Medicine Hematology & Oncology; Visit Provider Internal Medicine Hematology & Oncology
DX: C64.9 Malignant neoplasm of unspecified kidney, except renal pelvis (principal); E44.0 Moderate protein-calorie malnutrition; Z68.20 Body mass index [BMI] 20.0-20.9, adult; Z71.3 Dietary counseling and surveillance
CPT/HCPCS: 97802

== ENCOUNTER 2022-05-05 10:00 | Emergency (ER) | payer OTHER, SELFPAY ==
[2022-05-05] VITALS (7 sets, daily range): BP systolic 122–146; BP diastolic 74–82; PULSE 66–78; RESP 16; TEMP 37.1; O2SAT 95–99; BMI 19.2
--- NOTE | 2022-05-05 10:06 | ED.GENADULT ---
HPI - General Adult General Chief complaint: Abdominal Pain Stated complaint: cancer PT/ABD pain LT side. poss UTI Time Seen by Provider: 05/05/22 10:03 Source: patient Mode of arrival: Family Vehicle Limitations: no limitations History of Present Illness HPI narrative: Patient is a 61-year-old female. History of renal cell carcinoma. Has had a left-sided radical nephrectomy. Is currently being treated. Is here for evaluation of 2 days of which she states is urinary tract infection like symptoms. She is also having bilateral lower abdominal pain. She is constipated but this is not new for her. No fevers. No vomiting. Related Data Home Medications Medication Instructions Recorded Confirmed hydrochlorothiazide 12.5 mg tablet 12.5 mg PO DAILY 02/10/19 01/13/22 estradiol-norethindrone acet 1 1 tab PO DAILY 05/30/21 01/13/22 mg-0.5 mg tablet (Activella) hydrocodone 5 mg-acetaminophen 325 1 tab PO Q4-6H PRN Pain (Scale 05/30/21 01/13/22 mg tablet Score 4-6) losartan 25 mg tablet 25 mg PO DAILY 05/30/21 01/13/22 propranolol 20 mg tablet 20 mg PO BID 05/30/21 01/13/22 zolpidem 10 mg tablet (Ambien) 5 mg PO BEDTIME PRN Insomnia 05/30/21 01/13/22 alprazolam 0.5 mg tablet (Xanax) 0.25 mg PO BEDTIME PRN Anxiety 06/27/21 01/13/22 Previous Rx's Medication Instructions Recorded acetaminophen 325 mg capsule 650 mg PO QID PRN pain #60 caps 07/17/21 (Tylenol) lidocaine-prilocaine 2.5 %-2.5 % See Rx Instructions .Route 08/19/21 topical cream .COMPLEX #30 grams ketorolac 10 mg tablet 10 mg PO Q6H PRN pain #14 tabs 10/14/21 phenazopyridine 100 mg tablet 100 mg PO TID PRN pain 6 doses #6 11/22/21 (Pyridium) tabs ondansetron HCl 4 mg tablet 4 mg PO Q6H PRN Nausea And 01/20/22 Vomiting #60 tabs potassium citrate 10 mEq (1,080 20 meq PO BID hypokalemia #30 tabs 03/03/22 mg) tablet,extended release cephalexin 500 mg capsule 500 mg PO BID 7 days #14 caps 05/05/22 phenazopyridine 100 mg tablet 100 mg PO TID PRN pain 6 doses #6 05/05/22 (Pyridium) tabs Allergies Allergy/AdvReac Type Severity Reaction Status Date / Time No Known Drug Allergies Allergy Verified 11/22/21 11:14 Review of Systems Cardiovascular Cardiovascular: Reports system reviewed and no additional complaints, except as documented Respiratory Respiratory: Reports system reviewed and no additional complaints, except as documented Gastrointestinal Gastrointestinal: Reports system reviewed and no additional complaints, except as documented Genitourinary Genitourinary: Reports system reviewed and no additional complaints, except as documented Integumentary/Breasts Skin/Breast: Reports system reviewed and no additional complaints, except as documented Patient History Medical History Anxiety Cancer of kidney Chicken pox (~1965) Constipation Depression Diverticulosis Hearing loss HTN (hypertension) Lung cancer PTSD (post-traumatic stress disorder) Ruptured tympanic membrane Tinnitus Vertigo Surgical History Anesthesia H/O tubal ligation History of nephrectomy, left History of right cataract extraction (02/10/19) History of tympanostomy Family History Mother Hypertension Stroke Sister Breast cancer Diabetes mellitus Heart disease Hyperlipidemia Hypertension Stroke Mental health problem Social History household members: spouse Smoking Status: Former smoker alcohol intake: current substance use type: does not use Smoking Status: Former smoker alcohol intake frequency: 0-2 drinks per day Substance Use Type: does not use Exam Initial Vital Signs Initial Vital Signs: Vital Signs Temperature 98.7 F 05/05/22 10:07 Pulse Rate 78 05/05/22 10:07 Respiratory Rate 16 05/05/22 10:07 Pulse Oximetry 99 05/05/22 10:07 Oxygen Delivery Method Room Air 05/05/22 10:07 Const General: cooperative and comfortable HENMT Head: normal to inspection and normocephalic Resp Effort & Inspection: normal respiratory effort Auscultation: clear to auscultation bilaterally Cardio Rate: regular rate Rhythm: regular rhythm GI Inspection: normal to inspection and non-distended Palpation: No firm and tender (Lower abdomen) Skin General: no rashes or lesions noted Neuro General: patient alert, patient awake and moves all extremities Extrem General: capillary refill normal Course Orders Ordered: ED Orders 05/05/22 10:05 Urine Culture Stat Urine Microscopic Stat 05/05/22 11:40 Complete Blood Count AUTO DIFF Stat Comprehensive Metabolic Panel Stat Discontinued Medications Heparin Sodium (Porcine) (Heparin 500 Unit/5 Ml Port Flush) 500 unit IV PRN PRN PRN Reason: Flush Last Admin: 05/05/22 13:28 Dose: 500 unit Documented By: DUSTIN Sodium Chloride (Normal Saline 0.9%) 1,000 mls @ 1,000 mls/hr IV BOLUS ONE Stop: 05/05/22 12:22 Last Infusion: 05/05/22 13:06 Dose: 0 mls/hr Documented By: Admin: 05/05/22 11:47 Dose: 1,000 mls/hr Documented By: DUSTIN Lidocaine HCl (Lidocaine 1% (Pf) 2ml) 2 ml INJ NOW ONE Stop: 05/05/22 11:20 Last Admin: 05/05/22 11:27 Dose: 2 ml Documented By: DUSTIN Vital Signs Vital signs: Vital Signs - 8 hr 05/05/22 11:49 05/05/22 11:50 05/05/22 11:50 Pulse Rate 67 68 Blood Pressure 134/82 Pulse Oximetry 99 05/05/22 12:00 05/05/22 12:00 05/05/22 12:30 Pulse Rate 66 Blood Pressure 123/74 122/75 Pulse Oximetry 98 05/05/22 12:30 05/05/22 13:01 05/05/22 13:01 Pulse Rate 66 69 Blood Pressure 125/75 Pulse Oximetry 99 95 05/05/22 13:30 05/05/22 13:30 Pulse Rate 68 Blood Pressure 146/80 H Pulse Oximetry 99 Medical Decision Making Lab Data Lab results reviewed: Yes I reviewed the patient's lab results. 05/05/22 11:40 05/05/22 11:40 Labs: Lab Results 05/05/22 05/05/22 05/05/22 Range/Units 10:05 11:40 11:40 WBC 7.1 (4.5-11.0) X10^3/uL RBC 4.11 (4.0-5.2) X10^6/uL Hgb 12.9 (12.0-16.0) g/dL Hct 38.2 (36-46) % MCV 93.0 (80-100) fL MCH 31.5 (26-34) PG MCHC 33.8 (30-36) % RDW 11.8 (11.6-14.8) % Plt Count 266 (150-400) X10^3/uL Neut % (Auto) 68.3 (50-75) % Lymph % (Auto) 22.1 L (25-40) % [place] % (Auto) 7.3 (3-14) % Eos % (Auto) 1.6 L (2-4) % Baso % (Auto) 0.7 (0-2) % Neut # (Auto) 4800 (8019-5690) /uL Lymph # (Auto) 1600 (2841-5245) /uL [place] # (Auto) 500 (0-900) /uL Eos # (Auto) 100 (0-450) /uL Baso # (Auto) 0 (0-100) /uL Sodium 135 L (137-145) mmol/L Potassium 3.0 L (3.4-5.1) mmol/L Chloride 99 (98-107) mmol/L Carbon Dioxide 24 (22-32) mmol/L BUN 17 (7-17) mg/dL Creatinine 0.96 (0.52-1.04) mg/dL Estimated GFR > 60 (>60) mL/min BUN/Creatinine Ratio 17.7 (6-22) Glucose 74 L (80-110) mg/dL Calcium 8.6 (8.4-10.2) mg/dL Total Bilirubin 0.6 (0.2-1.3) mg/dL AST 25 (14-36) IU/L ALT 23 (<35) IU/L Alkaline Phosphatase 48 (38-126) U/L Total Protein 7.4 (6.3-8.2) g/dL Albumin 4.2 (3.5-5.0) g/dL Globulin 3.2 (1.7-4.1) g/dL Albumin/Globulin Ratio 1.3 (1.0-2.8) Urine RBC None seen (0-5/HPF) Urine WBC 5-10/hpf H (0-5/HPF) Urine Bacteria Occasional (0-1) (None) Ur Culture Indicated? Specimen cultured Urine Dip Bedside Urine Glucose Negative Bedside Urine Bilirubin - Negative Bedside Urine Ketone - Negative Urine Specific [place] 1.005 Bedside Urine Occult Blood +/- Bedside Urine pH 7.0 Bedside Urine Protein - Negative Bedside Urine Urobilinogen - Negative Bedside Urine Nitrite - Negative Bedside Urine Leukocytes +/- 15 Esterase Point of care testing: Urine Dip Bedside Urine Glucose Negative Bedside Urine Bilirubin - Negative Bedside Urine Ketone - Negative Urine Specific [place] 1.005 Bedside Urine Occult Blood +/- Bedside Urine pH 7.0 Bedside Urine Protein - Negative Bedside Urine Urobilinogen - Negative Bedside Urine Nitrite - Negative Bedside Urine Leukocytes +/- 15 Esterase MDM Narrative Medical decision making narrative: Patient does have lower abdominal pain and symptoms that she describes as a urinary tract infection. She is not vomiting. Afebrile. No leukocytosis. Does have white blood cells and bacteria in her urine sample. She does have a history of renal cell carcinoma. Has had a left-sided nephrectomy. She does have a benign abdominal exam. Her discomfort does seem to be suprapubic. Plan will be is to discharge the patient home on Pyridium and also antibiotics although she understands that if her symptoms worsen that she needs to return to the emergency department. Did consider other diagnoses such as appendicitis, bowel obstruction, abscesses, diverticulitis and others. But given her benign exam and her labs and her other symptoms will treat with antibiotics 1st. Discharge Plan Departure Patient Disposition: Home Clinical Impression: Abdominal pain, Urinary tract infection Instructions: DI for Urinary Tract Infection (UTI), DI for Abdominal Pain-Adult Activity Restrictions/Additional Instructions: A prescription for antibiotics was sent to the pharmacy of her choice. I recommend that you take them as directed. Continue to keep all of your scheduled medical appointments. Return to the emergency department for any new or worsening symptoms. Prescriptions: New phenazopyridine [Pyridium] 100 mg tablet 100 mg PO TID PRN (Reason: pain) Qty: 6 0RF cephalexin 500 mg capsule 500 mg PO BID 7 Days Qty: 14 0RF No Action phenazopyridine [Pyridium] 100 mg tablet 100 mg PO TID PRN (Reason: pain) Qty: 6 0RF ketorolac 10 mg tablet 10 mg PO Q6H PRN (Reason: pain) Qty: 14 0RF hydrochlorothiazide 12.5 mg tablet 12.5 mg PO DAILY hydrocodone-acetaminophen 5-325 mg Tablet 1 tab PO Q4-6H PRN (Reason: Pain (Scale Score 4-6)) estradiol-norethindrone acet [Activella] 1-0.5 mg Tablet 1 tab PO DAILY losartan 25 mg Tablet 25 mg PO DAILY zolpidem [Ambien] 10 mg Tablet 5 mg PO BEDTIME PRN (Reason: Insomnia) propranolol 20 mg Tablet 20 mg PO BID alprazolam [Xanax] 0.5 mg Tablet 0.25 mg PO BEDTIME PRN (Reason: Anxiety) lidocaine-prilocaine 2.5-2.5 % Cream See Rx Instructions .ROUTE .COMPLEX Qty: 30 4RF Rx Instructions: Apply to the skin over the port at least 60-90 minutes before the planned use of the port. Cover the cream with a small piece of plastic wrap and leave in place until the port is accessed ondansetron HCl 4 mg Tablet 4 mg PO Q6H PRN (Reason: Nausea And Vomiting) Qty: 60 1RF Rx Instructions: take 1 tab every 6 hrs as needed for nausea or vomiting potassium citrate 10 mEq (1,080 mg) Tablet Extended Release 20 meq PO BID Qty: 30 0RF acetaminophen [Tylenol] 325 mg capsule 650 mg PO QID PRN (Reason: pain) Qty: 60 0RF Referrals: Thais Rodney ARNP [Primary Care Provider] - Stand Alone Forms: Patient Portal/API
[2022-05-05 10:38] LABS: Bacteria Urine Occasional (0-1); Culture Indicated Urine Specimen Cultured; RBC Urine None Seen (0-5/HPF); WBC Urine 5-10/HPF (0-5/HPF)
[2022-05-05] MEDS: LIDOCAINE 1% (PF) 2ML 2 ML INJ (11:27)
[2022-05-05] MEDS: SODIUM CHLORIDE 0.9% 1,000 ML 1000 ML IV (11:47)
[2022-05-05 11:51] LABS: Add Manual Diff / Slide Review NO; Basophils Absolute Auto 0 /uL (0-100); Basophils Percent Auto 0.7 % (0-2); Eosinophils Absolute Auto 100 /uL (0-450); Eosinophils Percent Auto 1.6 % (2-4); Hematocrit 38.2 % (36-46); Hemoglobin 12.9 g/dL (12.0-16.0); Lymphocytes Absolute Auto 1600 /uL (1100-4500); Lymphocytes Percent Auto 22.1 % (25-40); Mean Corpuscular HGB Conc 33.8 % (30-36); Mean Corpuscular Hemoglobin 31.5 PG (26-34); Monocytes Absolute Auto 500 /uL (0-900); Monocytes Percent Auto 7.3 % (3-14); Neutrophils Absolute Auto 4800 /uL (1500-7000); Neutrophils Percent Auto 68.3 % (50-75); Platelet Count 266 X10^3/uL (150-400); Red Blood Cell Count 4.11 X10^6/uL (4.0-5.2); Red Cell Distribution Width 11.8 % (11.6-14.8); White Blood Cell Count 7.1 X10^3/uL (4.5-11.0)
[2022-05-05 12:07] LABS: Alanine Aminotransferase 23 IU/L (<35); Albumin 4.2 g/dL (3.5-5.0); Albumin Globulin Ratio 1.3 (1.0-2.8); Alkaline Phosphatase 48 U/L (38-126); Aspartate Aminotransferase 25 IU/L (14-36); BUN Creatinine Ratio 17.7 (6-22); Bilirubin Total 0.6 mg/dL (0.2-1.3); Blood Urea Nitrogen 17 mg/dL (7-17); Calcium 8.6 mg/dL (8.4-10.2); Carbon Dioxide 24 mmol/L (22-32); Chloride 99 mmol/L (98-107); Estimated Glomerular Filt Rate > 60 mL/min (>60); Globulin 3.2 g/dL (1.7-4.1); Glucose 74 mg/dL (80-110); HEMOLYSIS < 15 (0-50); Sodium 135 mmol/L (137-145); Total Protein 7.4 g/dL (6.3-8.2)
== END 2022-05-05 14:02 | disposition home or self-care (01) ==
PROVIDERS: Emergency Provider Emergency Medicine; PCP Internal Medicine
DX: N39.0 Urinary tract infection, site not specified (principal); R10.30 Lower abdominal pain, unspecified; C64.2 Malignant neoplasm of left kidney, except renal pelvis; Z79.899 Other long term (current) drug therapy
CPT/HCPCS: 80053; 81003; 81015; 85025; 87086; 96360; 99283; 99284; J1642

== ENCOUNTER → 2022-12-26 11:08 | Outpatient (CLI) | payer OTHER, SELFPAY ==
--- NOTE | 2022-12-26 | DI.MG.S_ITS ---
BILATERAL DIGITAL SCREENING MAMMOGRAM 3D/2D WITH CAD: 12/26/2022 CLINICAL: Routine screening. Comparison is made to exams dated: 01/03/2022 mammogram, 12/11/2020 mammogram, and 12/23/2018 mammogram - [facility]. Both breasts are heterogeneously dense, which may obscure small masses (category c / 51-75% glandular tissue). Current study was also evaluated with a Computer Aided Detection (CAD) system. No significant masses, calcifications, or other findings are seen in either breast. There has been no significant interval change. IMPRESSION: NEGATIVE There is no mammographic evidence of malignancy. A 1 year screening mammogram is recommended. Based on the Tyrer Cuzick model (a risk assessment model) the patient's lifetime risk is 9.2% and her 10 year risk is 3.8%. According to the ACR, ACS, and NCCN guidelines, an annual breast MRI exam along with mammogram is recommended if the patient's lifetime risk is 20% or greater. This exam was interpreted at Station ID: [id number]. NOTE: For mammograms, a report in lay terms will be sent to the patient. Approximately 15% of breast malignancies will not be visualized mammographically. In the management of a palpable breast mass, a negative mammogram must not discourage biopsy of a clinically suspicious lesion. Electronically Signed By: Tank cartagena/taina:12/26/2022 14:52:14 copy to: STEPHANIE LOZANO letter sent: Normal Exam ACR BI-RADS Category 1: Negative [id number]
== END ==
PROVIDERS: PCP Registered Nurse; Referring Provider Registered Nurse; Visit Provider Registered Nurse
DX: Z12.31 Encounter for screening mammogram for malignant neoplasm of breast (principal)
CPT/HCPCS: 77063; 77067

== ENCOUNTER → 2023-01-05 12:22 | Outpatient (CLI) | payer OTHER, SELFPAY ==
[2023-01-05 12:49] LABS: Estimated Glomerular Filt Rate > 60 mL/min (>60)
== END ==
PROVIDERS: PCP Registered Nurse; Referring Provider Radiology Diagnostic Radiology; Visit Provider Radiology Diagnostic Radiology
DX: N30.01 Acute cystitis with hematuria (principal)
CPT/HCPCS: 36415; 82565

== ENCOUNTER → 2023-01-07 11:57 | Outpatient (CLI) | payer OTHER, SELFPAY ==
--- NOTE | 2023-01-07 | DI.CT.S_ITS ---
PROCEDURE: CT CHEST ABD PEL W CON INDICATIONS: Malignant neoplasm of left kidney, except renal pelvis TECHNIQUE: After the administration of oral and intravenous contrast, axial sections acquired from the supraclavicular neck to the pubic symphysis. Coronal and sagittal reformats were performed. For radiation dose reduction, the following was used: automated exposure control, adjustment of mA and/or kV according to patient size. COMPARISON: [facility], RG, CT ABDOMEN/PELVIS W/WO CONTRAST, 04/23/2021, 11:53. [facility], CT, CT CHEST ABD PEL WO CON, 01/08/2022, 12:14. Merged With [facility], CT, CT CHEST WITHOUT CONTRAST, 06/18/2022, 15:03. FINDINGS: Image quality: Excellent. CHEST: Lungs and pleura: No acute air space opacities. 4 mm nodule in the right lower lung series 6, image 117 is unchanged compared to prior CT on 06/18/2022. Biapical scarring. No pleural effusions or pneumothorax. Central and peripheral airways are patent and normal in caliber. Mediastinum: Heart size is normal. No pericardial effusion. No mediastinal adenopathy by size criteria. Thoracic aorta and central pulmonary arteries are normal in size. Esophagus is normal in caliber. No hiatal hernia. Chest wall: No axillary or supraclavicular adenopathy by size criteria. Thyroid gland is normal . ABDOMEN: Liver: The liver has no mass or intrahepatic biliary ductal dilatation. The portal vein and hepatic veins are patent. Biliary: The gallbladder has no gallstones, pericholecystic fluid, gallbladder wall thickening, or surrounding inflammatory change. Pancreas: The pancreas has no mass or ductal dilatation. There is no surrounding inflammation. Spleen: Normal size. There are no masses. Adrenals: No hypertrophy or nodules. Kidneys: Status post left nephrectomy. The right kidney has no solid or cystic mass. No hydronephrosis. Bowel: The distal esophagus and stomach are normal. There is a bulge of the posterior aspect of the stomach which is unchanged compared to prior. The small bowel has a normal caliber and appearance. The terminal ileum is normal. The large bowel has a normal caliber and appearance. The appendix is normal. No free fluid or air. Nodes and vessels: No retroperitoneal or mesenteric adenopathy by size criteria. Aorta and inferior vena cava are normal in size. Abdominal wall: No abdominal wall mass or hernia. PELVIS: Genitourinary: The bladder has no wall thickening or mass. The uterus is enlarged with multiple fibroids. The largest fibroid measures 3.2 cm. The uterus measures 8.8 x 5.9 x 6.0 cm similar in size compared to prior CT on 01/08/2022. Bone: No suspicious bony lesions. No vertebral body compression fractures. IMPRESSION: 1. Status post left nephrectomy for renal cell carcinoma with no evidence of local recurrence or metastatic disease. 2. 4 mm nodule in the right lower lobe is stable. Dictated by: Tank Low M.D. on 01/07/2023 at 17:23 Approved by: Tank Low M.D. on 01/07/2023 at 17:43
== END ==
PROVIDERS: PCP Registered Nurse; Referring Provider Internal Medicine; Visit Provider Internal Medicine
DX: C64.2 Malignant neoplasm of left kidney, except renal pelvis (principal); R91.1 Solitary pulmonary nodule; Z90.5 Acquired absence of kidney
CPT/HCPCS: 71260; 74177; Q9967

== ENCOUNTER → 2023-05-01 10:08 | Outpatient (CLI) | payer OTHER, SELFPAY ==
--- NOTE | 2023-05-01 10:10 | DI.CT.S_ITS ---
PROCEDURE: CT CHEST ABD PEL W CON INDICATIONS: Malignant neoplasm of left kidney, except renal pe TECHNIQUE: After the administration of intravenous contrast, 5 mm thick sections acquired from the lung apices to the symphysis. 5 mm coronal and sagittal reformats were performed, with additional 7 mm MIP reformats through the lungs. For radiation dose reduction, the following was used: automated exposure control, adjustment of mA and/or kV according to patient size. COMPARISON: [facility], CT, CT CHEST ABD PEL W CON, 01/07/2023, 13:03. FINDINGS: Image quality: Excellent. CHEST: Lower Neck: No enlarged lymph nodes. Thyroid: No thyroid nodules which require sonographic follow up, per consensus guidelines. Axillae: No enlarged lymph nodes. Chest Wall: Interval removal of right-sided port. Lungs and Pleura: No pneumothorax or pleural effusions. Compared to CT dated January 07, 2023, no new or enlarging solid pulmonary nodules or consolidation. Right lower lobe solid pulmonary nodule is stable in size measuring 4 mm (3/232). Stable biapical pleural parenchymal scarring. Heart: Heart size is normal. No pericardial effusion. Thoracic Vessels: The aorta and pulmonary arteries demonstrate normal size. No filling defects in the central pulmonary vasculature. Mediastinum and Jennifer: No enlarged lymph nodes. Esophagus: No wall thickening. No hiatal hernia. ABDOMEN: Liver: No solid mass. Focal fat infiltration adjacent to the falciform ligament. Gallbladder: No radiopaque gallstones or wall thickening. Biliary ducts: No biliary dilation. Pancreas: No ductal dilation. Spleen: Size is within normal limits. Adrenal Glands: No adrenal nodules. Kidneys and Ureters: the left nephrectomy. No soft tissue enhancement in the surgical bed. Right kidney demonstrates normal cortical enhancement with no hydronephrosis, nephrolithiasis or solid mass. Subcentimeter cortical hypodensity in the right lower pole is too small to characterize, statistically a cyst. Stomach and Bowel: Stomach appears grossly normal. Small and large bowel is normal in caliber, without obstruction. Normal appendix (2/87). The no pneumatosis, pneumoperitoneum or portal venous gas. Peritoneum: No abnormal intraperitoneal fluid. No free air. Ventral Wall: No significant ventral hernia. Abdominal Nodes: No retroperitoneal or mesenteric adenopathy by size criteria. Vessels: Aorta and inferior vena cava are normal in size. PELVIS: Pelvic Organs: Fibroid uterus with largest fibroid measuring 5.6 x 5.2 cm (2/101). Bladder: No bladder wall thickening, accounting for underdistention. Pelvic Nodes: No enlarged lymph nodes. Miscellaneous: No inguinal hernias are seen. Bones: No aggressive osseous abnormality. No acute fractures. Mild to moderate multilevel degenerative changes of the spine. IMPRESSION: 1. Left nephrectomy with no CT evidence of local recurrence. 2. Stable right lower lobe solid pulmonary nodule measuring 4 mm. 3. No metastatic disease in the chest, abdomen or pelvis. Dictated by: Hola Copeland M.D. on 05/01/2023 at 15:07 Approved by: Hola Copeland M.D. on 05/01/2023 at 15:18
[2023-05-01 10:37] LABS: Estimated Glomerular Filt Rate > 60 mL/min (>60)
== END ==
LOC: CT 10:09
PROVIDERS: Radiology Diagnostic Radiology; PCP Registered Nurse; Referring Provider Internal Medicine; Visit Provider Internal Medicine
DX: C64.2 Malignant neoplasm of left kidney, except renal pelvis (principal); R91.1 Solitary pulmonary nodule; Z85.528 Personal history of other malignant neoplasm of kidney; Z90.5 Acquired absence of kidney
CPT/HCPCS: 36415; 71260; 74177; 82565; Q9967

== ENCOUNTER → 2023-10-27 09:21 | Outpatient (CLI) | payer OTHER, SELFPAY ==
--- NOTE | 2023-10-27 09:25 | DI.CT.S_ITS ---
PROCEDURE: CT CHEST ABD PEL W CON INDICATIONS: HX OF KIDNEY CANCER TECHNIQUE: After the administration of intravenous contrast, 5 mm thick sections acquired from the lung apices to the symphysis. 5 mm coronal and sagittal reformats were performed, with additional 7 mm MIP reformats through the lungs. For radiation dose reduction, the following was used: automated exposure control, adjustment of mA and/or kV according to patient size. COMPARISON: [facility], CT, CT CHEST WITH CONTRAST, 04/29/2021, 9:50. [facility], CT, CT CHEST ABD PEL W CON, 05/01/2023, 11:42. FINDINGS: Image quality: Excellent. CHEST: Lower Neck: No enlarged lymph nodes. Thyroid: No thyroid nodules which require sonographic follow up, per consensus guidelines. Axillae: No enlarged lymph nodes. Chest Wall: Unremarkable. Lungs and Pleura: 5 mm nodule within the lateral right lung base (series 5, image 226) appears unchanged in size dating back to prior chest CT of 04/29/2021. A smaller nodule within the central left lower lobe (series 5, image 179) also appears stable in size. No new pulmonary nodules or masses. Unchanged appearing biapical subpleural parenchymal thickening likely scarring. No pneumothorax or pleural effusions. Heart: Heart size is normal. No pericardial effusion. Thoracic Vessels: The aorta and pulmonary arteries demonstrate normal size. Mediastinum and Jennifer: No enlarged lymph nodes. Esophagus: No wall thickening. No hiatal hernia. ABDOMEN: Liver: No solid mass. Gallbladder: No radiopaque gallstones or wall thickening. Biliary ducts: No biliary dilation. Pancreas: No ductal dilation. Spleen: Size is within normal limits. Adrenal Glands: No adrenal nodules. Kidneys and Ureters: Postsurgical changes from prior left nephrectomy. Right kidney without solid mass lesion. No right renal calculi. No evidence of hydronephrosis involving the right kidney. Stomach and Bowel: Small large bowel appear normal in caliber without evidence of bowel obstruction. Normal-appearing appendix. Peritoneum: No abnormal intraperitoneal fluid. No free air. Ventral Wall: No significant ventral hernia. Abdominal Nodes: No retroperitoneal or mesenteric adenopathy by size criteria. Vessels: Aorta and inferior vena cava are normal in size. PELVIS: Pelvic Organs: Uterus is enlarged and lobulated containing numerous masses of varying sizes compatible with fibroid uterus. Bladder: No bladder wall thickening, accounting for underdistention. Pelvic Nodes: No enlarged lymph nodes. Miscellaneous: No inguinal hernias are seen. Bones: No aggressive osseous abnormality. IMPRESSION: No evidence of recurrent or metastatic disease within the chest, abdomen or pelvis. Dictated by: Sonny Bey M.D. on 10/27/2023 at 14:53 Approved by: Sonny Bey M.D. on 10/27/2023 at 15:06
[2023-10-27 09:49] LABS: Estimated Glomerular Filt Rate > 60 mL/min (>60)
== END ==
PROVIDERS: Radiology Diagnostic Radiology; PCP Registered Nurse; Referring Provider Internal Medicine; Visit Provider Internal Medicine
DX: Z85.528 Personal history of other malignant neoplasm of kidney (principal)
CPT/HCPCS: 36415; 71260; 74177; 82565; Q9967

== ENCOUNTER → 2024-05-04 08:38 | Outpatient (CLI) | payer OTHER, SELFPAY ==
--- NOTE | 2024-05-04 08:45 | DI.CT.S_ITS ---
PROCEDURE: CT SOFT TISSUE NECK W CON INDICATIONS: HISTORY OF KIDNEY CANCER TECHNIQUE: After the administration of intravenous contrast, 3.0 mm axial sections acquired from the sella to the aortic arch. Additional oblique axial 3.0 mm sections acquired through the pharynx. 3 mm thick coronal and sagittal reformats were generated. For radiation dose reduction, the following was used: automated exposure control. COMPARISON: None. FINDINGS: Image quality: Excellent. Lymph nodes: No enlarged lymph nodes seen throughout the neck. Vessels: Visualized vasculature appears patent. Neck spaces: The oropharynx, nasopharynx, and pharynx demonstrate no mucosal lesions. The vocal cords, false vocal cords, pyriform sinuses, epiglottis, vallecula, and tongue base all appear normal. Extramucosal spaces appear unremarkable. Glands: The parotid and submandibular glands appear normal. Thyroid gland demonstrates no significant abnormality. Miscellaneous: Visualized brain and orbits appear normal. Lung apices appear clear, please refer to same day CT of the chest. Superficial soft tissues appear normal. Bones: No suspicious bony lesions. Visualized sinuses and mastoids appear unremarkable. Left mastoidectomy. Degenerative changes of the spine with reversal the normal cervical lordosis. IMPRESSION: No enlarged cervical lymph nodes or masses are identified. Dictated by: David Monroe M.D. on 05/04/2024 at 16:05 Approved by: David Monroe M.D. on 05/04/2024 at 16:08
[2024-05-04 09:07] LABS: Estimated Glomerular Filt Rate > 60 mL/min (>60)
--- NOTE | 2024-05-04 09:34 | DI.CT.S_ITS ---
PROCEDURE: CT CHEST ABD PEL W CON INDICATIONS: HISTORY OF KIDNEY CANCER TECHNIQUE: After the administration of intravenous contrast, 5 mm thick sections acquired from the lung apices to the symphysis. 5 mm coronal and sagittal reformats were performed, with additional 7 mm MIP reformats through the lungs. For radiation dose reduction, the following was used: automated exposure control, adjustment of mA and/or kV according to patient size. COMPARISON: [facility], CT, CT CHEST ABD PEL W CON, 10/27/2023, 10:38. FINDINGS: Image quality: Diagnostic Lungs and pleura: Scattered scarring and atelectasis, particularly at the lung apices, overall similar distribution compared to prior imaging. No new airspace disease, pleural effusion, or suspicious pulmonary nodule Mediastinum, heart, and esophagus: Normal heart size. No pathologic lymph nodes by size criteria. Unremarkable esophagus. Chest wall and thyroid: Unremarkable Liver: Unremarkable Gallbladder and biliary system: Unremarkable, nondilated Pancreas: No ductal dilation Spleen: Nonenlarged Adrenals: No discrete nodules Kidneys: No right solid mass or hydronephrosis. Left nephrectomy changes. No suspicious soft tissue at the surgical bed Vessels and lymph nodes: The main portal vein is patent. No abdominal aortic aneurysm. No pathologic lymphadenopathy by size criteria. Bowel and peritoneum: No evidence of small bowel obstruction. No pathologic ascites. There is increased fecal loading. Colonic diverticula Nondilated appendix Body wall: Unremarkable Pelvis: Bladder appears unremarkable. Suspect uterine fibroids again seen Bones: No aggressive appearing osseous abnormality. Degenerative changes are present. IMPRESSION: No active metastatic disease identified. Left nephrectomy changes. Other incidental and nonacute findings above. Dictated by: Bk De La Torre M.D. on 05/04/2024 at 10:24 Approved by: Bk De La Torre M.D. on 05/04/2024 at 10:29
== END ==
PROVIDERS: Radiology Diagnostic Radiology; PCP Family Medicine; Referring Provider Internal Medicine; Visit Provider Internal Medicine
DX: Z85.528 Personal history of other malignant neoplasm of kidney (principal); K57.90 Diverticulosis of intestine, part unspecified, without perforation or abscess without bleeding
CPT/HCPCS: 36415; 70491; 71260; 74177; 82565; Q9967

== ENCOUNTER → 2024-07-16 12:07 | Outpatient (CLI) | payer OTHER, SELFPAY | PROVIDERS: PCP Family Medicine; Visit Provider Registered Nurse | DX: R30.0 Dysuria (principal) | CPT/HCPCS: 87077; 87086; 87186 ==

== ENCOUNTER → 2024-11-09 09:53 | Outpatient (CLI) | payer OTHER, SELFPAY ==
--- NOTE | 2024-11-09 09:58 | DI.CT.S_ITS ---
PROCEDURE: CT CHEST ABD PEL W CON INDICATIONS: Hx kidney cancer TECHNIQUE: After the administration of intravenous contrast, 5 mm thick sections acquired from the lung apices to the symphysis. 5 mm coronal and sagittal reformats were performed, with additional 7 mm MIP reformats through the lungs. For radiation dose reduction, the following was used: automated exposure control, adjustment of mA and/or kV according to patient size. COMPARISON: [facility], CT, CT CHEST ABD PEL W CON, 05/04/2024, 9:19. FINDINGS: Image quality: Diagnostic Lungs and pleura: A focal scarring. This is similar. No suspicious pulmonary nodules. No airspace consolidation or pleural effusion. Similar nodule in the right costophrenic angle Mediastinum, heart, and esophagus: Normal heart size. No enlarged lymph nodes by size criteria. Unremarkable esophagus. Chest wall and thyroid: Unremarkable Liver: Unremarkable Gallbladder and biliary system: Nondilated. Unremarkable. Pancreas: No ductal dilation Spleen: Nonenlarged Adrenals: No discrete nodules Kidneys: Left nephrectomy. No suspicious findings at the left surgical site. No solid right renal mass. Vessels and lymph nodes: Main portal vein is patent. No abdominal aortic aneurysm. No lymph nodes enlarged by size criteria Bowel and peritoneum: No bowel obstruction. Colonic diverticula. No pathologic ascites or drainable abscess Body wall: Unremarkable Pelvis: Under distended. Heterogeneous uterine enhancement, likely multiple fibroids, but not well assessed on CT. Bones: No aggressive appearing osseous abnormality. Degenerative changes are present. IMPRESSION: Left nephrectomy. No active metastatic disease identified. Other incidental and nonacute findings above. Dictated by: Bk De La Torre M.D. on 11/09/2024 at 12:04 Approved by: Bk De La Torre M.D. on 11/09/2024 at 12:10
--- NOTE | 2024-11-09 09:59 | DI.MG.S_ITS ---
MM screening mammo BI: 11/09/2024. BI-RADS: 1 CLINICAL: 64-year old female for bilateral screening mammogram. Tyrer-Cuzick lifetime risk of 8.9%. Current reported family history of breast cancer: sister. PRIOR EXAMS 12/26/2022, 01/03/2022, 12/11/2020, 12/23/2018. MAMMOGRAPHY TECHNIQUE: 2D and 3D (tomosynthesis) digital mammographic views obtained, with additional images as needed for full coverage. Current study was also evaluated with a Computer Aided Detection (CAD) system. DENSITY C. The breasts are heterogeneously dense, which may obscure small masses. MAMMOGRAPHY FINDINGS Bilateral: No suspicious mass, asymmetry, microcalcification, or other abnormality seen. IMPRESSION: * No evidence of malignancy. RECOMMENDATIONS Bilateral * Annual screening mammography. OVERALL ASSESSMENT CATEGORY BI-RADS-1: Negative. [employer] recommends annual screening mammography beginning at age 40 for women with average risk of breast cancer. ELECTRONICALLY SIGNED: Mindi Rivero M.D. on 11/10/2024 at 12:44:31 PM PT Interpreting Station ID: [id number]
[2024-11-09 10:30] LABS: Estimated Glomerular Filt Rate > 60 mL/min (>60)
== END ==
LOC: CT 09:54
PROVIDERS: PCP Family Medicine; Referring Provider Internal Medicine; Visit Provider Internal Medicine
DX: Z12.31 Encounter for screening mammogram for malignant neoplasm of breast (principal); R92.333 Mammographic heterogeneous density, bilateral breasts; Z80.3 Family history of malignant neoplasm of breast; K57.90 Diverticulosis of intestine, part unspecified, without perforation or abscess without bleeding; Z85.528 Personal history of other malignant neoplasm of kidney; Z90.5 Acquired absence of kidney
CPT/HCPCS: 36415; 71260; 74177; 77063; 77067; 82565; Q9967